=== PATIENT | female | born 1945 | race Caucasian/White ===

== ENCOUNTER → 2018-04-11 | Outpatient (CLI) | payer MEDICARE, OTHER ==
[~2018-04-11] MED LIST: CALCAVITD PO; CALCIUM PO; CLARITIN10 MG PO; Vitamin D PO
[2018-04-28 09:39] LABS: HPV OTHER HR TYPES Spec QNS
[2018-04-28 09:40] LABS: HPV 16 Spec QNS
== END | disposition home or self-care (01) ==
LOC: LAB 17:53 → LAB SHORT 17:53
PROVIDERS: Nurse Practitioner Women's Health
DX: Z12.72 Encounter for screening for malignant neoplasm of vagina (principal); Z91.89 Other specified personal risk factors, not elsewhere classified
CPT/HCPCS: 87624; G0123

== ENCOUNTER → 2019-04-06 | Outpatient (CLI) | payer MEDICARE, OTHER | LOC: LAB SHORT 14:21 → LAB 14:21 | PROVIDERS: Nurse Practitioner Women's Health | DX: Z12.72 Encounter for screening for malignant neoplasm of vagina (principal); Z91.89 Other specified personal risk factors, not elsewhere classified | CPT/HCPCS: 87624; G0123 ==

== ENCOUNTER 2020-08-18 09:11 | Day surgery (SDC) | payer MEDICARE, OTHER ==
[~2020-08-18] VITALS: Ht 157.5 cm; Wt 87.4 kg
[~2020-08-18 09:11] MED LIST changes: +ESTRADIOL42.5 GM VAG
== END 2020-08-18 11:21 | disposition home or self-care (01) ==
LOC: ORSCSDS 09:11
PROVIDERS: Internal Medicine Gastroenterology
PROC: 0DBK8ZX Excision of Ascending Colon, Via Natural or Artificial Opening Endoscopic, Diagnostic (ICD-10-PCS; principal; 2020-08-18 10:30)
PROC: 0DBM8ZX Excision of Descending Colon, Via Natural or Artificial Opening Endoscopic, Diagnostic (ICD-10-PCS; principal; 2020-08-18 10:30)
DX: Z12.11 Encounter for screening for malignant neoplasm of colon (principal); D12.2 Benign neoplasm of ascending colon; D12.4 Benign neoplasm of descending colon; K57.30 Diverticulosis of large intestine without perforation or abscess without bleeding; Z86.010 Personal history of colon polyps
CPT/HCPCS: 88305; J2704; J7120

== ENCOUNTER → 2021-03-03 | Outpatient (CLI) | payer MEDICARE, OTHER | END | disposition home or self-care (01) | LOC: LAB SHORT 07:58 | DX: L72.11 Pilar cyst (principal) | CPT/HCPCS: 88304 ==

== ENCOUNTER 2023-06-01 14:05 | Emergency (ER) | payer MEDICARE, OTHER ==
[~2023-06-01] VITALS: Ht 160 cm; Wt 85.7 kg
[~2023-06-01 14:05] MED LIST changes: -CLARITIN10 MG PO; +LORA10ER PO
[2023-06-01] MEDS ORDERED: FentaNYL Citrate 50 MCG/ML 2 ML Injection IM ONE (15:35)
[2023-06-01] MEDS ORDERED: HYDR1TAB94 PO (15:38)
[2023-06-01 16:18] VITALS: BP 176/90
== END 2023-06-01 16:37 | disposition home or self-care (01) ==
LOC: ER 14:05
DX: S82.042A Displaced comminuted fracture of left patella, initial encounter for closed fracture (principal); S50.11XA Contusion of right forearm, initial encounter; W18.09XA Striking against other object with subsequent fall, initial encounter; Y92.009 Unspecified place in unspecified non-institutional (private) residence as the place of occurrence of the external cause; Z88.2 Allergy status to sulfonamides; Z79.899 Other long term (current) drug therapy
CPT/HCPCS: 29505; 73090; 73562-LT; 96372-59; 99283-25; J3010

== ENCOUNTER 2023-06-06 08:44 | Day surgery (SDC) | payer OTHER, MEDICARE ==
[2023-06-06] VITALS (14 sets, daily range): BP systolic 161–207; BP diastolic 63–103
[~2023-06-06] VITALS: Ht 162.6 cm; Wt 85.7 kg
[~2023-06-06 08:44] MED LIST changes: +Bupivacaine 0.5% HCl 5 MG/ML 30MLVIAL ONE; +CeFAZolin Sodium 2,000 MG in NS 50 ML IV SCH; +HYDR1TAB94 PO; +Lactated Ringer's 1,000 ML IV SCH; +propofoL 0 ML IV ONE
[2023-06-06] MEDS ORDERED: propofoL 0 ML IV ONE (08:55)
[2023-06-06] MEDS ORDERED: Ondansetron HCl 2 MG / ML 2ML Vial IV PRN (09:00)
[2023-06-06] MEDS ORDERED: FentaNYL Citrate 50 MCG/ML 2 ML Injection IV PRN ×3 (09:05)
[2023-06-06] MEDS ORDERED: Metoclopramide HCl 5MG / ML 2ML Vial IV PRN (09:05)
[2023-06-06] MEDS ORDERED: Lidocaine HCl 1% 5 ML SYR INJ ONE (09:05)
[2023-06-06] MEDS ORDERED: HYDROmorphone HCl/Pf 1MG SYR IV PRN (09:05)
[2023-06-06] MEDS ORDERED: ROSU5 PO (09:11)
[2023-06-06] MEDS ORDERED: ASPI81CH PO (09:12)
[2023-06-06] MEDS ORDERED: FentaNYL Citrate 50 MCG/ML 2 ML Injection ONE ×2 (09:21→12:10)
[2023-06-06] MEDS ORDERED: propofoL 20 ML IV ONE (09:21)
[2023-06-06 09:49] LABS: Hematocrit 35.4 % (33.0-51.0); Hemoglobin 11.4 g/dL (11.5-16.0); Mean Corpuscular HGB 29.8 pg (26.0-34.0); Mean Corpuscular HGB Conc 32.2 g/dL (31.5-36.5); Mean Corpuscular Volume 93 fL (80-100); Mean Platelet Volume 11.6 fL (9.1-12.4); Platelet Count 228 K/mm3 (150-400); RDW Coefficient Variation 12.9 % (11.7-14.2); RDW Standard Deviation 43.9 fL (35.1-46.3); Red Blood Cell Count 3.82 M/mm3 (3.80-5.20); White Blood Cell Count 5.62 K/mm3 (4.00-11.30)
[2023-06-06] MEDS ORDERED: Ondansetron HCl 2 MG / ML 2ML Vial ONE (09:58)
[2023-06-06] MEDS ORDERED: Dexamethasone Sod Phos 10 MG/ML 1ML VIAL ONE (09:58)
[2023-06-06 10:05] LABS: Albumin, Blood 3.6 g/dL (3.4-5.0); Bilirubin, Total 1.2 mg/dL (0.1-1.0); Bun/Creatinine Ratio 22.9 (12.0-20.0); Calcium, Blood 9.3 mg/dL (8.5-10.1); Creatinine, Blood 0.66 mg/dL (0.40-1.00); Globulin, Blood 3.5 g/dL (2.2-4.0); Potassium, Blood 4.3 mmol/L (3.5-5.5); Total Protein, Blood 7.1 g/dL (6.4-8.2)
[2023-06-06] MEDS ORDERED: CeFAZolin Sodium 2,000 MG VIAL ONE (10:23)
[2023-06-06] MEDS ORDERED: Bupivacaine HCl 0.25% 30 ML Injection ONE (10:58)
--- NOTE | 2023-06-06 11:35 | NUR ---
06/06/23 1135 Daysi Sotelo ADDUCTOR CANAL NERVE BLOCK COMPLETED AFTER PT WAS INTUBATED.
[2023-06-06] MEDS ORDERED: HYDROmorphone HCl/Pf 1MG SYR ONE (12:58)
[2023-06-06] MEDS ORDERED: OxyCODONE HCL 5 MG TAB PO PRN (13:10)
[2023-06-06] MEDS ORDERED: Labetalol HCL 5 MG/ML 4ML Injection (Single Dose) IV ONE (13:40)
[2023-06-06] MEDS ORDERED: Labetalol HCL 5 MG/ML 4ML Injection (Single Dose) ONE (13:42)
--- NOTE | 2023-06-06 14:17 | NUR ---
REPORT TO RAEGAN REAL TO ASSUME CARE OF PATIENT. PT PAIN 3 IN HER LEFT HIP. DENIES PAIN L KNEE. CAP REFILL WNL.
--- NOTE | 2023-06-06 15:11 | NUR ---
Discharge instructions reviewed with patient. Patient verbalizes understanding. Copy given to patient to take home. 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 Pt's personal crutches sent with pt. Patient States Post-Procedure ride home has been arranged. Discharged via wheelchair to private car for ride home.
== END 2023-06-06 15:09 | disposition home or self-care (01) ==
LOC: ORSCMMR 08:44 → ORD 10:45 → ORSCMMR 10:45
PROVIDERS: Anesthesiology; Orthopaedic Surgery
PROC: 0QSF04Z Reposition Left Patella with Internal Fixation Device, Open Approach (ICD-10-PCS; principal; 2023-06-06 10:45)
DX: S82.002A Unspecified fracture of left patella, initial encounter for closed fracture (principal); W01.0XXA Fall on same level from slipping, tripping and stumbling without subsequent striking against object, initial encounter; E78.5 Hyperlipidemia, unspecified; I25.2 Old myocardial infarction; Z79.899 Other long term (current) drug therapy
CPT/HCPCS: 80053; 85027; 93005; 93010; A9270; J0690; J1100; J1170; J2405; J2704; J3010; J7120